=== PATIENT | female | born 1950 | race Caucasian/White ===

== ENCOUNTER 2017-06-16 03:42 | Emergency (ER) | payer MEDICARE, BC ==
--- NOTE | 2017-06-16 04:44 | EDM.PDOC ---
ED HPI GENERAL MEDICAL PROBLEM - General Chief Complaint: Respiratory Problem Stated Complaint: COLD/COUGH/FEVER Time Seen by Provider: 06/16/17 04:16 Source of Information: Reports: Patient History Limitations: Reports: No Limitations - History of Present Illness INITIAL COMMENTS - FREE TEXT/NARRATIVE: This is a 67-year-old female. She's been having upper respiratory symptoms lots of sinus and nasal drainage. No significantly sore throat but now she is coughing up a lot of phlegm. She did see her family doctor last week but was told she hadn't had the cough long enough and she wasn't having a fever and I'll require antibiotics. Apparently yesterday evening and this morning she's been having some chills though she has not taken her temperature so she comes to the ER because she believe she needs to have some antibiotics. She denies any nausea vomiting denies any abdominal pain. She's had no diarrhea. - Related Data Allergies Allergy/AdvReac Type Severity Reaction Status Date / Time No Known Allergies Allergy Verified 06/16/17 04:04 Home Meds: Home Meds Ascorbic Acid [Vitamin C] 500 mg PO DAILY 12/07/13 [History] Beta-Carotene(A) W-C & E/Min [Vision Vitamins] 1 each PO 12/07/13 [History] Calcium Carbonate/Vitamin D3 [Caltrate-600 with Vit D Tab] 2 each PO 12/07/13 [ History] Estrogens, Conjugated [Premarin Vaginal] 1 applic VAG DAILY 12/07/13 [History] Multivitamin with Minerals [One Daily Plus Minerals] 1 each PO 12/07/13 [History ] Mycophyto. 12/07/13 [History] Replenex. 12/07/13 [History] Triamcinolone Acetonide 15 gm TP 12/07/13 [History] Vitamin B Complex [Balanced B-100] 1 each PO 12/07/13 [History] metroNIDAZOLE [Metrogel] 1 applic TP BID 12/07/13 [History] Betamethasone/Clotrimazole [Lotrisone] 45 gm .XX Q12H #1 tube 12/08/13 [Rx] Amoxicillin/Potassium Clav [Augmentin 875-125 Tablet] 1 each PO BID #14 tablet 06/16/17 [Rx] Past Medical History HEENT History: Reports: Cataract Cardiovascular History: Reports: High Cholesterol Gastrointestinal History: Reports: [employer] History: Reports: Musculoskeletal History: Reports: Arthritis Oncologic (Cancer) History: Reports: Breast, Colon, Uterine - Past Surgical History GI Surgical History: Reports: Appendectomy, Cholecystectomy, Colonoscopy Female Surgical History: Reports: Hysterectomy Social & Family History - Caffeine Use Caffeine Use: Reports: None - Recreational Drug Use Recreational Drug Use: No ED ROS GENERAL - Review of Systems Review Of Systems: See Below Constitutional: Reports: Chills, Malaise HEENT: Reports: Rhinitis, Sinus Problem Respiratory: Reports: Cough. Denies: Shortness of Breath, Wheezing Cardiovascular: Reports: No Symptoms Endocrine: Reports: No Symptoms GI/Abdominal: Reports: No Symptoms : Reports: No Symptoms Musculoskeletal: Reports: Other (Arthritis) Skin: Reports: No Symptoms Neurological: Reports: No Symptoms Psychiatric: Reports: No Symptoms Hematologic/Lymphatic: Reports: No Symptoms ED EXAM, GENERAL - Physical Exam Exam: See Below Exam Limited By: No Limitations General Appearance: Alert, WD/WN, No Apparent Distress Eye Exam: Bilateral Eye: Normal Inspection Ears: Normal External Exam, Normal Canal, Normal TMs Nose: Nasal Drainage, Clear Rhinorrhea Throat/Mouth: Normal Inspection, Normal Lips, Normal Voice, No Airway Compromise Head: Normocephalic Neck: Supple Respiratory/Chest: No Respiratory Distress, Lungs Clear, Normal Breath Sounds Cardiovascular: Regular Rate, Rhythm, No Murmur GI/Abdominal: Soft, Non-Tender Back Exam: Full Range of Motion Extremities: Normal Inspection, Normal Range of Motion, No Pedal Edema Neurological: Alert, Oriented Psychiatric: Normal Affect, Normal Mood Skin Exam: Warm, Dry Course - Vital Signs Last Recorded V/S: Last Vital Signs Temp 98.3 F 06/16/17 03:59 Pulse 95 06/16/17 03:59 Resp 18 06/16/17 03:59 BP 163/96 H 06/16/17 03:59 Pulse Ox 97 06/16/17 03:59 - Orders/Labs/Meds Orders: Active Orders 24 hr Category Date Time Status CULTURE STREP A CONFIRMATION [RM] Stat Lab 06/16/17 04:23 Results Rapid Strep w/culture conf [STREP SCRN A RAPID W CULT Lab 06/16/17 04:23 Results CONF] [RM] Stat - Re-Assessments/Exams Free Text/Narrative Re-Assessment/Exam: 06/16/17 05:52 I spoke to the patient regarding a negative strep test and a negative flu test Departure - Departure Time of Disposition: 05:52 Disposition: Home, Self-Care 01 Condition: Good Clinical Impression: Acute sinusitis Qualifiers: Sinusitis location: other Recurrence: non-recurrent Qualified Code(s): J01.80 - Other acute sinusitis Upper respiratory infection Qualifiers: URI type: unspecified URI Qualified Code(s): J06.9 - Acute upper respiratory infection, unspecified Acute bronchitis Qualifiers: Bronchitis organism: unspecified organism Qualified Code(s): J20.9 - Acute bronchitis, unspecified - Discharge Information Prescriptions: Amoxicillin/Potassium Clav [Augmentin 875-125 Tablet] 1 each PO BID #14 tablet Referrals: Beatris Rojas PA-C [Primary Care Provider] - Forms: ED Department Discharge Additional Instructions: Drink lots of fluids and avoid sugar and caffeine, take the antibiotics faithfully until they're finished, use [id number] medication to help with the congestion and to help with the cough, follow-up with your family doctor later this week for recheck and return to the ER if needed - My Orders Last 24 Hours: My Active Orders 06/16/17 04:23 CULTURE STREP A CONFIRMATION [RM] Stat Rapid Strep w/culture conf [STREP SCRN A RAPID W CULT CONF] [RM] Stat - Assessment/Plan Last 24 Hours: My Active Orders 06/16/17 04:23 CULTURE STREP A CONFIRMATION [RM] Stat Rapid Strep w/culture conf [STREP SCRN A RAPID W CULT CONF] [RM] Stat
== END 2017-06-16 06:11 | disposition home or self-care (01) ==
LOC: JD.ED 03:42
DX: J20.9 Acute bronchitis, unspecified (principal); J01.80 Other acute sinusitis; J06.9 Acute upper respiratory infection, unspecified; Z79.899 Other long term (current) drug therapy; E78.00 Pure hypercholesterolemia, unspecified
CPT/HCPCS: 87081; 87430; 87804; 99283

== ENCOUNTER 2023-10-09 22:21 | Emergency (ER) | payer MEDICARE, BC ==
[2023-10-09] MEDS: Acetaminophen 325 MG Tab PO ONE (23:08)
== END 2023-10-10 00:51 | disposition home or self-care (01) ==
LOC: JD.ED 22:21
DX: S00.03XA Contusion of scalp, initial encounter (principal); Z90.49 Acquired absence of other specified parts of digestive tract; Z90.710 Acquired absence of both cervix and uterus; Z79.899 Other long term (current) drug therapy; Z79.2 Long term (current) use of antibiotics; W01.0XXA Fall on same level from slipping, tripping and stumbling without subsequent striking against object, initial encounter
CPT/HCPCS: 70450; 99283; A9270

== ENCOUNTER 2023-12-30 15:53 | Emergency (ER) | payer MEDICARE, BC ==
[2023-12-30 17:13] LABS: BASOPHILS ABSOLUTE AUTO 0.1 K/mm3 (0.0-0.2); BASOPHILS PERCENT AUTO 0.7 % (0.0-1.0); EOSINOPHILS ABSOLUTE AUTO 0.3 K/mm3 (0.0-0.4); EOSINOPHILS PERCENT AUTO 2.1 % (0.0-6.0); HEMATOCRIT 41.1 % (37.0-47.0); HEMOGLOBIN 12.8 gm/dl (12.0-16.0); IMMATURE GRAN ABSOLUTE AUTO 0.07 K/mm3 (0.00-0.05); IMMATURE GRAN PERCENT AUTO 0.6 % (0.0-0.4); LYMPHOCYTES ABSOLUTE AUTO 2.3 K/mm3 (1.0-4.8); LYMPHOCYTES PERCENT AUTO 18.2 % (24.0-44.0); MEAN CORPUSCULAR HEMOGLOBIN 29.8 pg (28.0-32.0); MEAN CORPUSCULAR HGB CONC 31.1 g/dl (32.0-36.0); MEAN CORPUSCULAR VOLUME 95.6 fl (83.0-99.0); MEAN PLATELET VOLUME 11.4 fl (9.4-12.3); MONOCYTES ABSOLUTE AUTO 0.8 K/mm3 (0.0-0.8); MONOCYTES PERCENT AUTO 6.7 % (0.0-8.0); NEUTROPHILS PERCENT AUTO 71.7 % (41.0-71.0); PLATELET COUNT,PLT 164 K/mm3 (150-400)
[2023-12-30 17:56] LABS: ALANINE AMINOTRANSFERASE,ALT 47 U/L (14-59); ALBUMIN 3.3 g/dl (3.4-5.0); ALKALINE PHOSPHATASE 58 U/L (46-116); ANION GAP 12.7 (5-15); ASPARTATE AMNIOTRANSFERASE,AST 32 U/L (15-37); BILIRUBIN TOTAL 0.5 mg/dL (0.2-1.0); BLOOD UREA NITROGEN,BUN 13 mg/dL (7-18); BUN/CREATININE RATIO 18.6 (14-18); CALCIUM 8.7 mg/dL (8.5-10.1); CARBON DIOXIDE,CO2 27 mEq/L (21-32); CHLORIDE,CL 109 mEq/L (98-107); CREATININE 0.7 mg/dL (0.55-1.02); ESTIMATED GFR 92 mL/min (>60); GLUCOSE RANDOM 108 mg/dL (70-99); POTASSIUM,K 3.7 mEq/L (3.5-5.1); PROTEIN TOTAL,TP 6.5 g/dl (6.4-8.2); SODIUM,NA 145 mEq/L (136-145)
[2023-12-30 18:54] LABS: LACTIC ACID 1.3 mmol/L (0.4-2.0)
[2023-12-30] MEDS: Doxycycline Monohydrate 100 MG Cap PO ONE (20:05)
== END 2023-12-30 20:10 | disposition home or self-care (01) ==
LOC: JD.ED 15:53
DX: I89.0 Lymphedema, not elsewhere classified (principal); D72.829 Elevated white blood cell count, unspecified; Z86.16 Personal history of COVID-19; Z90.49 Acquired absence of other specified parts of digestive tract; Z90.710 Acquired absence of both cervix and uterus; Z79.899 Other long term (current) drug therapy
CPT/HCPCS: 36415; 80053; 83605; 83880; 85025; 93970; 99284; A9270

== ENCOUNTER → 2024-10-15 | Day surgery (SDC) | payer MEDICARE, BC ==
[~2024-10-15] MED LIST: Phenylephrine 1% 10 MG/ML SDV ONE; Propofol 200 MG/20 ML SDV ONE; Sodium Chloride 0.9% 10 ML Syringe FLUSH PRN; Sodium Chloride 0.9% 10 ML Syringe FLUSH SCH
[2024-10-15] MEDS: Lactated Ringers 1,000 ML IV SCH (07:05)
== END | disposition home or self-care (01) ==
LOC: JD.SDS 06:31
PROVIDERS: ATTEND Surgery
DX: Z12.11 Encounter for screening for malignant neoplasm of colon (principal); D12.4 Benign neoplasm of descending colon; K62.1 Rectal polyp; K62.89 Other specified diseases of anus and rectum; Z80.0 Family history of malignant neoplasm of digestive organs; Z98.0 Intestinal bypass and anastomosis status; Z91.011 Allergy to milk products; Z79.899 Other long term (current) drug therapy; Z86.0100 Personal history of colon polyps, unspecified
CPT/HCPCS: 45380; J2371; J2704; J7120; 00811; 99100